=== PATIENT | female | born 1985 | race Caucasian/White ===

== ENCOUNTER 2020-03-02 17:28 | Emergency (ER) | payer OTHER ==
[~2020-03-02] VITALS: Ht 172.7 cm; Wt 93.0 kg
--- NOTE | 2020-03-02 17:35 | PHYS DOC ---
General Adult HPI: HPI: ".. I was throwing wood on the back of the...truck..and I felt something pull in my Rt. shoulder... this was about3:30... I took some tylenol.. but I am still hurting bad..." " I was working for [employer].. we were just finishing up..." Patient is a 34 year old female who presents with above hx and complaints severe right shoulder pain. Patient localizes pain in the deltoid area of right shoulder. Does have deltoid sensation. Distal neurovascular is equal to the left arm. Patient is right-hand dominant. On isolation of rotator cuff with arm extended patient had markedly increased pain and giveaway weakness. Patient denies previous history of right shoulder injury. Patient denies any specific ill contacts. No travel outside the [place] area. No ice immunosuppression. Review of Systems: Review of Systems: Constitutional: Denies fever or chills Eyes: Denies change in visual acuity HENT: Denies nasal congestion or sore throat Respiratory: Denies cough or shortness of breath Cardiovascular: Denies chest pain or edema GI: Denies abdominal pain, nausea, vomiting, bloody stools or diarrhea : Denies dysuria Musculoskeletal: Denies back pain or joint pain . Complains of severe pain in right shoulder as per HPI Integument: Denies rash Neurologic: Denies headache, focal weakness or sensory changes Endocrine: Denies polyuria or polydipsia Lymphatic: Denies swollen glands Psychiatric: Denies depression or anxiety Heart Score: Risk Factors: Risk Factors: DM, Current or recent (<one month) smoker, HTN, HLP, family history of CAD, obesity. Risk Scores: Score 0 - 3: 2.5% MACE over next 6 weeks - Discharge Home Score 4 - 6: 20.3% MACE over next 6 weeks - Admit for Clinical Observation Score 7 - 10: 72.7% MACE over next 6 weeks - Early Invasive Strategies Family History: Family History: Noncontributory to presentation Current Medications: Current Meds: See nursing for home meds Allergies: Allergies: No known drug allergies Physical Exam: PE: Constitutional: Well developed, well nourished, in acute distress, non-toxic appearance. [] HENT: Normocephalic, atraumatic, bilateral external ears normal, oropharynx moist, no oral exudates, nose normal. [] Eyes: PERRLA, EOMI, conjunctiva normal, no discharge. [] Neck: Normal range of motion, no tenderness, supple, no stridor. [] Cardiovascular:Heart rate regular rhythm, no murmur [] Lungs & Thorax: Bilateral breath sounds equal apex on auscultation [] Abdomen: Bowel sounds normal, soft, no tenderness, no masses, no pulsatile masses. [] Skin: Warm, dry, no erythema, no rash. [] Back: No tenderness, no CVA tenderness. [] Extremities: No tenderness, no cyanosis, no clubbing, ROM intact, no edema. [] Except findings in right shoulder as per HPI Neurologic: Alert and oriented X 3, normal motor function, normal sensory function, no focal deficits noted. [] Psychologic: Affect anxious, judgement normal, mood normal. [] EKG: EKG: [] Radiology/Procedures: Radiology/Procedures: [ IMAGING REPORT Signed PATIENT: KEVIN DEMARCO ACCOUNT: [id number] : 1985 LOCATION: ER AGE: 34 SEX: F EXAM STATUS: REG ER ORD. PHYSICIAN: ALONA IRIZARRY MD REASON: shoulder injury Rt. PROCEDURE: SHOULDER 2+V RIGHT Exam: Right shoulder 3 views INDICATION: Right shoulder injury TECHNIQUE: Frontal view of the right shoulder with internal and external rotation and transscapular Y view. Comparisons: None FINDINGS: Bone mineralization is normal. No acute or healed fractures. Soft tissues are unremarkable. Joint spaces are well-maintained. IMPRESSION: No acute osseous abnormality. Electronically signed by: Acacia Lopez MD (03/02/2020 6:17 PM) [id number] DICTATED AND SIGNED BY: ACACIA LOPEZ MD DATE: 03/02/201816 CC: ALONA IRIZARRY MD; PCP,NO ~ ][address] [address] IMAGING REPORT Signed PATIENT: KEVIN DEMARCO ACCOUNT: [id number] : 1985 LOCATION: ER AGE: 34 SEX: F EXAM STATUS: REG ER ORD. PHYSICIAN: ALONA IRIZARRY MD REASON: shoulder injury Rt. PROCEDURE: CHEST AP ONLY Exam: Chest one view INDICATION: Shoulder injury, right TECHNIQUE: Frontal view of the chest Comparisons: None FINDINGS: The cardiomediastinal silhouette and pulmonary vessels are within normal limits. The lung and pleural spaces are clear. IMPRESSION: No acute cardiopulmonary process. Electronically signed by: Acacia Lopez MD (03/02/2020 6:15 PM) [id number] DICTATED AND SIGNED BY: ACACIA LOPEZ MD DATE: 03/02/201814 CC: ALONA IRIZARRY MD; PCP,NO ~ Course & Med Decision Making: Course & Med Decision Making Pertinent Labs and Imaging studies reviewed. (See chart for details) Patient is ice packs as needed. Tylenol and ibuprofen for pain. Marked pain may take Vicoprofen up to 4 times a day. Patient use sling. Patient take arm out of sling at least 4 times a day for passive range of motion. Patient follow-up with primary care. Patient follow-up work comp. Impression- 1. Rotator cuff tear right shoulder versus sprain/strain [] Dragon Disclaimer: Dragon Disclaimer: This electronic medical record was generated, in whole or in part, using a voice recognition dictation system. Departure Departure: Disposition: 01 HOME/RESIDENCE PRIOR TO ADM Condition: STABLE Referrals: PCP,NO (PCP) Scripts Hydrocodone/Ibuprofen (HYDROCODONE-IBUPROFEN 7.5-200 ) 1 Each Tablet 1 TAB PO PRN Q6HRS PRN for PAIN, #30 TAB 0 Refills Prov: ALONA IRIZARRY MD 03/02/20 Justification of Admission: Justification of Admission: Justification of Admission Dx: N/A Dragon Disclaimer This chart was dictated in whole or in part using Voice Recognition software in a busy, high-work load, and often noisy Emergency Department environment. It may contain unintended and wholly unrecognized errors or omissions. Dragon Disclaimer This chart was dictated in whole or in part using Voice Recognition software in a busy, high-work load, and often noisy Emergency Department environment. It may contain unintended and wholly unrecognized errors or omissions. ALONA IRIZARRY MD Mar 02, 2020 17:35
[2020-03-02] MEDS ORDERED: HYDROcodon/IBUPROFEN 7.5/200MG 1 TAB TABLET ONE (18:04)
[2020-03-02] MEDS ORDERED: HYDROcodon/IBUPROFEN 7.5/200MG 1 TAB TABLET PO ONE (18:10)
--- NOTE | 2020-03-02 18:18 | RAD ---
Exam: Chest one view INDICATION: Shoulder injury, right TECHNIQUE: Frontal view of the chest Comparisons: None FINDINGS: The cardiomediastinal silhouette and pulmonary vessels are within normal limits. The lung and pleural spaces are clear. IMPRESSION: No acute cardiopulmonary process. Electronically signed by: Acacia Kay MD (03/02/2020 6:15 PM) [id number]
--- NOTE | 2020-03-02 18:20 | RAD ---
Exam: Right shoulder 3 views INDICATION: Right shoulder injury TECHNIQUE: Frontal view of the right shoulder with internal and external rotation and transscapular Y view. Comparisons: None FINDINGS: Bone mineralization is normal. No acute or healed fractures. Soft tissues are unremarkable. Joint spaces are well-maintained. IMPRESSION: No acute osseous abnormality. Electronically signed by: Acacia Kay MD (03/02/2020 6:17 PM) [id number]
[2020-03-02 18:28] VITALS: BP 197/137
[2020-03-02] MEDS ORDERED: HYDR-1179 PO (19:22)
== END 2020-03-02 19:22 | disposition home or self-care (01) ==
LOC: ER 17:28
DX: S49.91XA Unspecified injury of right shoulder and upper arm, initial encounter (principal); X50.3XXA Overexertion from repetitive movements, initial encounter; Y93.89 Activity, other specified; Y92.89 Other specified places as the place of occurrence of the external cause; Y99.0 Civilian activity done for income or pay
CPT/HCPCS: 71045; 73030; 81025; 99284